=== PATIENT | female | born 1955 ===

== ENCOUNTER 2021-05-21 08:45 | Day surgery (SDC) | payer OTHER | END 2021-05-21 13:50 | disposition home or self-care (01) | LOC: AMB-ENDOS 08:45 | PROVIDERS: ATTEND Surgery | DX: K62.89 Other specified diseases of anus and rectum (principal); K52.89 Other specified noninfective gastroenteritis and colitis; K64.8 Other hemorrhoids; Z20.822 Contact with and (suspected) exposure to COVID-19 ==